=== PATIENT | male | born 1970 | race Caucasian/White ===

== ENCOUNTER 2018-07-20 15:30 | Emergency (ER) | payer BC ==
[~2018-07-20] VITALS: Ht 180.3 cm; Wt 108.9 kg
[2018-07-20] MEDS ORDERED: ENALAPRILAT DIHYDRATE 1.25 MG/ML 2ML VIAL IV PRN (16:15)
[2018-07-20 17:09] VITALS: BP 158/81
[2018-07-20] MEDS ORDERED: ONDANSETRON HCL INJ 2 MG/ML VIAL IV STA (17:09)
== END 2018-07-20 17:10 | disposition home or self-care (01) ==
LOC: FSED 15:30
DX: R50.9 Fever, unspecified (principal); R05 Cough; B34.9 Viral infection, unspecified; I10 Essential (primary) hypertension
CPT/HCPCS: 80053; 85025; 87400; 99283; J2405